=== PATIENT | female | born 1980 | race Caucasian/White ===

== ENCOUNTER 2017-07-25 13:15 | Emergency (ER) | payer OTHER ==
[2017-07-25 13:48] VITALS: BP 98/63; PULSE 97; TEMP 98.1; BMI 28.5
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
[2017-07-25 14:03] LABS: URINE APPEARANCE SLCLOUDY; URINE BILIRUBIN NEGATIVE (NEGATIVE); URINE BLOOD NEGATIVE (NEGATIVE); URINE COLOR YELLOW; URINE GLUCOSE (UA) NEGATIVE (NEGATIVE); URINE KETONE TRACE (NEGATIVE); URINE LEUK ESTERASE NEGATIVE (NEGATIVE); URINE NITRITE NEGATIVE (NEGATIVE); URINE PROTEIN NEGATIVE (NEGATIVE); URINE UROBILINOGEN NEGATIVE mg/dL (0.2-1.0)
[2017-07-25 14:19] LABS: URINE MARIJUANA THC NEGATIVE ng/ml (CUTOFF=50)
[2017-07-25] MEDS ORDERED: morphine CARPU-JECT 4 MG/1 ML DISP.SYRIN IVPUSH ONE (14:52)
[2017-07-25 14:58] LABS: BASOPHIL 0.2 % (0-2.0); MCH 30.1 pg (25.7-33.7); MCHC 33.5 g/dl (32.0-36.0); MEAN CELL VOLUME 89.9 fl (80-96); MEAN PLT VOLUME 9.7 fl (7.5-11.1); NEUTROPHILS 58.1 % (42.8-82.8); PLATELET COUNT 227 K/MM3 (134-434); RDW 14.1 % (11.6-15.6); WHITE BLOOD COUNT 8.6 K/mm3 (4.0-10.0)
--- NOTE | 2017-07-25 15:22 | PDOC ---
Attending Attestation - Resident Resident Name: Ania Mejia - ED Attending Attestation I have performed the following: I have examined & evaluated the patient, The case was reviewed & discussed with the resident, I agree w/resident's findings & plan, Exceptions are as noted - Medical Decision Making 07/25/17 15:19 A portion of this note was written by my scribe, under my supervision. Vital Signs Temp Pulse Resp BP Pulse Ox 98.1 F 97 H 16 98/63 96 07/25/17 13:36 07/25/17 13:36 07/25/17 13:36 07/25/17 13:36 07/25/17 13:36 36 year old female with hx endometriosis s/p hysterectomy sparing ovaries, colitis, lupus, fibromyalgia, anxiety presents with abdominal pain. The patient reported in the last several days with dark black stools. Also noted to have LLQ pain and LUQ pain. The patient denies fevers, chills. Differential includes colitis, ruptured ovarian cyst, cystitis, gastritis, GIB. [place] CT scan of abdomen and pelvis. Transvaginal ultrasound. Labs <Jose Enrique Gil - Last Filed: 07/25/17 15:19> - HPI HPI: 07/25/17 15:23 The patient is a 36 year old female, with a significant past medical history of Anemia, Colitis, Hyperthyroidism, Fibromyalgia, Lupus who presents to the emergency department sent from PMDs office with LLQ abdominal pain and generalized weakness. Patient reports LLQ abdominal radiating to L lower back. Patient reports pain is worse with intercourse and walking. Patient reports taking Advil and Tylenol for pain however denies any relief. Patient also reports 7 episodes of dark, tarry stools with no clots with associated weakness. Patient was given IV fluids at [facility]Ds office and was sent to the ED for further evaluation. She denies chest pain, headache or dizziness. She denies fever, chills, nausea, vomit, diarrhea or constipation. She denies dysuria, frequency, urgency or hematuria. Allergies: Penicillins, tramadol Past surgical history: C6-C7 fusion Social history: None PCP: Dr. Brian Jacinto - Physicial Exam PE: 07/25/17 15:23 GENERAL: Awake, alert, and fully oriented, in no acute distress HEAD: No signs of trauma EYES: PERRLA, EOMI, sclera anicteric, conjunctiva clear ENT: Auricles normal inspection, hearing grossly normal, nares patent, oropharynx clear without exudates. Moist mucosa NECK: Normal ROM, supple, no lymphadenopathy, JVD, or masses LUNGS: Breath sounds equal, clear to auscultation bilaterally. No wheezes, and no crackles HEART: Regular rate and rhythm, normal S1 and S2, no murmurs, rubs or gallops ABDOMEN: Soft, nontender, normoactive bowel sounds. No guarding, no rebound. No masses EXTREMITIES: Normal range of motion, no edema. No clubbing or cyanosis. No cords, erythema, or tenderness NEUROLOGICAL: Cranial nerves II through XII grossly intact. Normal speech, normal gait SKIN: Warm, Dry, normal turgor, no rashes or lesions noted. PELVIC: As per residents exam RECTAL: As per residents exam - Medical Decision Making 07/25/17 15:23 Documentation prepared by Apurva Alonso, acting as medical staff assistant for Jose Enrique Gil MD <Apurva Alonso - Last Filed: 07/25/17 15:23>
[2017-07-25 15:45] LABS: ANION GAP 8 (8-16); BILIRUBIN,TOTAL 0.4 mg/dL (0.2-1.0); CALCIUM 8.6 mg/dL (8.5-10.1); CO2 28 mmol/L (21-32); CREATININE 0.7 mg/dL (0.55-1.02); GLUCOSE,RANDOM 73 mg/dL (74-106); MAGNESIUM 2.3 mg/dL (1.8-2.4); SGOT/AST 12 U/L (15-37); SGPT/ALT 20 U/L (12-78); TOT PROT 7.2 g/dl (6.4-8.2)
[2017-07-25 15:46] LABS: ALK PHOS 51 U/L (45-117)
[2017-07-25] MEDS ORDERED: SODIUM CHLORIDE 1,000 ML IV STA (16:02)
--- NOTE | 2017-07-26 11:09 | EKG ---
Test Reason : Blood Pressure : / mmHG Vent. Rate : 072 BPM Atrial Rate : 072 BPM P-R Int : 154 ms QRS Dur : 082 ms QT Int : 374 ms P-R-T Axes : 026 050 036 degrees QTc Int : 409 ms NORMAL SINUS RHYTHM WITH SINUS ARRHYTHMIA NORMAL ECG WHEN COMPARED WITH ECG OF 13-OCT-2010 22:09, NO SIGNIFICANT CHANGE WAS FOUND Confirmed by ALVARO LAUREANO MD ([id number]) on 07/26/2017 11:08:55 AM Referred By: Confirmed By:ALVARO LAUREANO MD
== END 2017-07-25 17:15 | disposition left against medical advice (07) ==
LOC: JER 13:15
PROC: 3E0337Z Introduction of Electrolytic and Water Balance Substance into Peripheral Vein, Percutaneous Approach (ICD-10-PCS; principal; 2017-07-25)
DX: N83.202 Unspecified ovarian cyst, left side (principal); M32.9 Systemic lupus erythematosus, unspecified; M79.7 Fibromyalgia; Z87.42 Personal history of other diseases of the female genital tract; Z90.79 Acquired absence of other genital organ(s)
CPT/HCPCS: 74177-TC; 76830-TC; 80053; 80307; 81003; 82272; 83690; 83735; 84100; 84484; 84703; 85025; 87086; 93005; 93010; 96360; 99283-25

== ENCOUNTER 2018-03-01 12:20 | Day surgery (SDC) | payer OTHER ==
[2018-02-26 16:04] VITALS: BMI 27.5
[2018-03-01] MEDS ORDERED: BUPIVACAINE HCL 0.25% 125 MG/50 ML VIAL ONE (12:53)
[2018-03-01] MEDS ORDERED: MIDAZOLAM HCL 2 MG/2 ML SINGLE DOSE VIAL ONE ×2 (13:07→13:42)
[2018-03-01] MEDS ORDERED: PROPOFOL 20 ML ONE (13:19)
[2018-03-01] MEDS ORDERED: LIDOCAINE HCL/PF 2% SDV 5ML VIAL ONE (13:19)
[2018-03-01] MEDS ORDERED: ONDANSETRON 4 MG/2 ML VIAL ONE ×2 (13:19→14:38)
[2018-03-01] MEDS ORDERED: DEXAMETHASONE SOD PHOSPHATE 4 MG/1 ML VIAL ONE (13:19)
--- NOTE | 2018-03-01 13:45 | OP ---
Operative Note - Note: Operative Date: 03/01/18 Pre-Operative Diagnosis: left knee medial meniscal tear Operation: left knee arthroscopy, partial medial and lateral meniscectomy Post-Operative Diagnosis: Same as Pre-op (+ LMT) Surgeon: Camron Bear Anesthesiologist/VENDING TECHNICIAN: Titus Barclay Anesthesia: General Estimated Blood Loss (mls): 20 Operative Report Dictated: Yes
[2018-03-01] MEDS ORDERED: CLINDAMYCIN PHOSPHATE 600 MG/4 ML VIAL ONE (13:47)
[2018-03-01] MEDS ORDERED: BUPIVACAINE HCL/PF 0.25% (2.5MG/ML) 10 ML VIAL IJ ONE (14:00)
[2018-03-01] MEDS ORDERED: oxyCODONE HCL 5 MG TABLET PO PRN (14:33)
[2018-03-01] MEDS ORDERED: ONDANSETRON 4 MG/2 ML VIAL IVPUSH PRN (14:33)
[2018-03-01] MEDS ORDERED: LACTATED RINGERS SOLUTION 1,000 ML IV SCH (14:45)
--- NOTE | 2018-03-01 15:28 | OP ---
DATE OF OPERATION: 03/01/2018 PREOPERATIVE DIAGNOSIS: Left knee medial meniscal tear. POSTOPERATIVE DIAGNOSES: Left knee medial meniscal tear, plus lateral meniscus tear. PROCEDURE: Left knee arthroscopy with partial medial, partial lateral meniscectomy. SURGEON: Camron Gamez MD ANESTHESIA: General. POSTOPERATIVE CONDITION: Stable. COMPLICATIONS: None. BLOOD LOSS: Minimal. INDICATIONS: This is a pleasant woman who has been suffering from medial and lateral knee pain. MRI demonstrated medial meniscal tearing. Treatment options including nonoperative versus operative management were discussed. Operative risks were reviewed in detail including bleeding, infection, neurovascular injury, need for further surgery, postoperative pain and stiffness, progression of osteoarthritis. We discussed medical risks such as heart attack, stroke, DVT, PE, and . I reviewed all the patient's questions and concerns. We discussed the use of perioperative DVT and antibiotic prophylaxis. She voiced understanding and elected to proceed. DESCRIPTION OF PROCEDURE: The patient was brought to the operating room where general anesthesia was administered. The left lower extremity was then examined, demonstrating full range of motion. Good stability. The knee did have a moderate effusion. The leg was prepped and draped in the usual sterile fashion and a preoperative dose of antibiotics was given and the usual timeout was performed. The portal sites were now marked out. Both portals were injected subcutaneously with 0.25% Marcaine. The lateral portal was now established with an 11 blade. The arthroscope was now passed into the knee. Examination of the patellofemoral joint demonstrated no articular lesions. Passing the arthroscope down to the notch demonstrated a thickened ligamentum mucosum. Passing the arthroscope medially, a medial portal was established under spinal needle localization. The medial compartment was now examined. There were no significant articular lesions noted. The meniscus demonstrated no agustin tears at first. However, upon probing, there was an undersurface tear in the posterior horn of the medial meniscus. On traction of the tear, it did slide into the joint, indicating instability. Given that it was not in the periphery of the meniscus, no repair was possible. Utilizing a combination of meniscal biter and a shaver, this tear was debrided down to a stable base. The arthroscope was now passed into the lateral compartment. Here, a significant amount of free edge tearing was noted in the body of the lateral meniscus. Utilizing a biter as well as shaver, this was debrided down to a stable base. Underlying this, there was some fissuring and partial-thickness articular cartilage loss on the tibial side and some fraying on the femoral side. At this point, the gutters were inspected and were unremarkable. Examination of the suprapatellar pouch did demonstrate some adhesions present, fibrous bands traversing across. These were lysed. The excess fluid was now withdrawn from the knee. Portals were sutured using 3-0 nylon. Sterile dressings were placed. She was extubated and transferred to the recovery room in stable condition. CAMRON GAMEZ M.D. [id number]
[2018-03-01] MEDS ORDERED: oxyCODONE HCL 5 MG TABLET PO ONE (15:44)
[2018-03-01 16:27] VITALS: TEMP 97.8
[2018-03-01 18:20] VITALS: BP 124/74
[2018-03-01 18:44] VITALS: PULSE 76
== END 2018-03-01 18:45 | disposition home or self-care (01) ==
LOC: FASU 12:20
PROVIDERS: ATTEND Orthopaedic Surgery Sports Medicine
PROC: 0SBD4ZZ Excision of Left Knee Joint, Percutaneous Endoscopic Approach (ICD-10-PCS; 2018-03-01)
PROC: 0SBD4ZZ Excision of Left Knee Joint, Percutaneous Endoscopic Approach (ICD-10-PCS; principal; 2018-03-01 14:00)
DX: S83.242A Other tear of medial meniscus, current injury, left knee, initial encounter (principal); S83.282A Other tear of lateral meniscus, current injury, left knee, initial encounter; X58.XXXA Exposure to other specified factors, initial encounter; Y93.89 Activity, other specified; Y92.89 Other specified places as the place of occurrence of the external cause
CPT/HCPCS: 94760

== ENCOUNTER 2019-05-02 07:38 | Day surgery (SDC) | payer BC ==
[2019-05-02] MEDS ORDERED: EPINEPHrine 1:1,000 1 MG/1 ML - 30ML VIAL (INJECTION) ONE (07:58)
[2019-05-02] MEDS ORDERED: BUPIVACAINE HCL/PF 2.5 MG/ML - 30 ML VIAL IJ ONE (07:58)
[2019-05-02] MEDS ORDERED: MIDAZOLAM HCL 2 MG/2 ML SINGLE DOSE VIAL ONE (08:02)
[2019-05-02] MEDS ORDERED: KETOROLAC TROMETHAMINE 30 MG/1 ML VIAL ONE (08:02)
[2019-05-02] MEDS ORDERED: DEXAMETHASONE SOD PHOSPHATE 4 MG/1 ML VIAL ONE (08:02)
[2019-05-02] MEDS ORDERED: SUCCINYLCHOLINE CHLORIDE 200 MG/10 ML VIAL ONE (08:02)
[2019-05-02] MEDS ORDERED: ONDANSETRON 4 MG/2 ML VIAL ONE ×2 (08:02→10:26)
[2019-05-02] MEDS ORDERED: ceFAZolin SODIUM 1 GM VIAL ONE (08:02)
[2019-05-02] MEDS ORDERED: PROPOFOL 20 ML ONE ×4 (08:02)
[2019-05-02 08:09] VITALS: BMI 31.1
--- NOTE | 2019-05-02 09:13 | OP ---
Operative Note - Note: Operative Date: 05/02/19 Pre-Operative Diagnosis: Left medial meniscus tear Operation: Left knee arthroscopy with partial medial and lateral meniscectomy Post-Operative Diagnosis: Same as Pre-op Surgeon: Camron [facility] Director: Althea Schaefer Anesthesiologist/ARTIFICIAL BREEDING DISTRIBUTOR: Ashly Cox Anesthesia: General Operative Report Dictated: Yes
[2019-05-02] MEDS ORDERED: HYDROmorphone HCL/PF 1 MG/ML AMP ONE (09:25)
[2019-05-02] MEDS ORDERED: BUPIVACAINE HCL/PF 0.25% (2.5MG/ML) 10 ML VIAL IJ ONE (10:04)
[2019-05-02] MEDS ORDERED: oxyCODONE HCL 5 MG TABLET ONE ×2 (11:28→13:50)
[2019-05-02] MEDS ORDERED: oxyCODONE HCL 5 MG TABLET PO PRN (12:02)
[2019-05-02] MEDS ORDERED: ONDANSETRON 4 MG/2 ML VIAL IVPUSH PRN (12:02)
[2019-05-02] MEDS ORDERED: LACTATED RINGERS SOLUTION 1,000 ML IV SCH (12:15)
[2019-05-02 14:48] VITALS: BP 130/81; PULSE 88; TEMP 97.9
--- NOTE | 2019-05-02 20:18 | OP ---
DATE OF OPERATION: 05/02/2019 PREOPERATIVE DIAGNOSIS: Left knee medial and lateral meniscal tears. POSTOPERATIVE DIAGNOSIS: Left knee medial and lateral meniscal tears. PROCEDURE: Left knee arthroscopy with partial medial and lateral meniscectomy. SURGEON: Camron Gamez MD STATISTICAL ENGINEER: NELSON Carmona ANESTHESIA: General. POSTOPERATIVE CONDITION: Stable. COMPLICATIONS: None. INDICATIONS: This is a pleasant young woman who has been suffering from knee pain following a previous arthroscopy. No additional injury was encountered. MRI demonstrated a recurrent adjacent medial meniscal tear and also a lateral meniscal tear. Treatment options including nonoperative management were reviewed. Operative risks were reviewed in detail including bleeding, infection, neurovascular injury, need for other surgery, postoperative pain and stiffness, progression of osteoarthritis. We discussed medical risks such as heart attack, stroke, DVT, PE, and . I addressed the use of perioperative antibiotic and DVT prophylaxis. I addressed all of the patient's questions and concerns. She voiced understanding and elected to proceed. PROCEDURE: The patient was brought to the operating room, where general anesthetic was administered. The left lower extremity was prepped and draped in the usual sterile fashion. A preoperative dose of antibiotics was given and the usual time-out procedure was performed. Portal sites were now marked out. An 11 blade was now used to establish the lateral portal. The arthroscope was now passed into the knee. Examination of the patellofemoral joint demonstrated some partial thickness fraying of the patellar surface. No trochlea wear was noted. The arthroscope was now passed into the notch. Here, the ACL and PCL were visualized to be intact. The arthroscope was now passed into the medial compartment. Here, a medial portal was established under spinal needle localization. The medial meniscus was now probed. There was an undersurface tear noted in the posterior horn extending into the body. Utilizing combination of meniscal biter and shaver, this was debrided down to a stable base. Examination of the articular surface here demonstrated some mild superficial fraying on the femoral and tibial surfaces. Examining the lateral compartment demonstrated a free edge tear of the posterior horn and body junction. There is diffuse partial-thickness chondral loss across the lateral femoral condyle. The tibial side demonstrated some fraying as well. A shaver was then used to debride the free edge tear, and this exposed that there was a deeper pocket of a horizontal fissure. This was then debrided utilizing the biters and the shaver as well. At this point, the excess fluid was withdrawn from the joint. The portals were sutured using 3-0 nylon. Sterile dressings were placed. The patient was extubated and transferred to the recovery room in stable condition. CAMRON GAMEZ M.D. [id number]
== END 2019-05-02 14:48 | disposition home or self-care (01) ==
LOC: FASU 07:38
PROVIDERS: ATTEND Orthopaedic Surgery Sports Medicine
PROC: 0SBD4ZZ Excision of Left Knee Joint, Percutaneous Endoscopic Approach (ICD-10-PCS; 2019-05-02)
PROC: 0SBD4ZZ Excision of Left Knee Joint, Percutaneous Endoscopic Approach (ICD-10-PCS; principal; 2019-05-02 09:39)
DX: S83.242A Other tear of medial meniscus, current injury, left knee, initial encounter (principal); S83.282A Other tear of lateral meniscus, current injury, left knee, initial encounter; X58.XXXA Exposure to other specified factors, initial encounter; Y93.89 Activity, other specified; Y92.89 Other specified places as the place of occurrence of the external cause
CPT/HCPCS: 94760